=== PATIENT | female | born 1965 | race Two or more races ===

== ENCOUNTER 2020-08-02 12:15 | Inpatient (IN) | payer OTHER ==
[~2020-08-02] VITALS: Ht 160 cm; Wt 53.5 kg
--- NOTE | 2020-08-02 12:34 | NUR ---
PACIENTE ALERTA Y ORIENTADA POR RUDY, ANSIOSA.ESTA REFIERE VOMITOS DESDE EL TASHIA HOY CON SEIS. REFIERE DOLOR EN EL AREA DE PECHO DEBIDO A QUE SE ENCONTRABA REALIZANDO FUERZAS Y SE LE HABIA INDICADO NO HACERLAS POR OSTEOCONDRITIS HACEN 2 SEMANAS.
[2020-08-02] MEDS ORDERED: SYNTHROID50 MCG (12:41)
--- NOTE | 2020-08-02 15:03 | NUR ---
SE RECIBE PACIENTE ALERTA Y ORIENTADA EN TIEMPO LUGAR Y PERSONA. SE ORIENTA A PACIENTE SOBRE TRATAMIENTO ORDENADO POR DRA. GUEVARA. SEE COLECTAN MUESTRAS ORDENADAS, SE AMDINISTRAN MEDICAMENTOS Y SE COLOCA VENOPUNCION PATENTE, MARKELL DE ERITEMA Y EDEMA, SE CONECTA TERAPIA DE IVF'S 0.9 NSS 1000ML A 200ML/HR.
== END 2020-08-05 15:27 | disposition home or self-care (01) | DRG 434 ==
LOC: ER 12:15 → MEDI 22:42
PROVIDERS: ADMIT Specialist; ATTEND Specialist
PROC: BW40ZZZ Ultrasonography of Abdomen (ICD-10-PCS; 2020-08-02)
PROC: 0FJB8ZZ Inspection of Hepatobiliary Duct, Via Natural or Artificial Opening Endoscopic (ICD-10-PCS; principal; 2020-08-03)
PROC: 4A12X4Z Monitoring of Cardiac Electrical Activity, External Approach (ICD-10-PCS; 2020-08-03)
DX: K70.10 Alcoholic hepatitis without ascites (principal); E86.0 Dehydration; D69.59 Other secondary thrombocytopenia; F10.20 Alcohol dependence, uncomplicated; E03.8 Other specified hypothyroidism; K29.00 Acute gastritis without bleeding